=== PATIENT | female | born 1995 | race Caucasian/White ===

== ENCOUNTER 2017-11-27 01:17 | Emergency (ER) | payer OTHER ==
[~2017-11-27] VITALS: Ht 152.4 cm; Wt 46.9 kg
[~2017-11-27 01:17] MED LIST: BCPILLS PO; HYDR1SOL30 PO
[2017-11-27 01:19] VITALS: TEMP 36.5; Ht 152.4 cm; Wt 46.9 kg
[2017-11-27] MEDS ORDERED: IUD'IUD INT UTER (01:47)
[2017-11-27] MEDS ORDERED: ESCI10TA17 PO (01:47)
[2017-11-27 02:00] LABS: BASO % 0.1 %; BASO ABS # 0.01 K/uL (0-0.2); EOS % 0.1 %; EOS ABS # 0.01 K/uL (0-0.5); HEMATOCRIT 41.9 % (37-47); HEMOGLOBIN 15.3 g/dL (12.0-16.0); IG# 0.02 K/uL (0.00-0.02); LYMPH % 25.5 %; LYMPH ABS # 1.75 K/uL (1.2-3.4); MEAN CORPUSCULAR HGB CONC 36.5 g/dl (32-36); MEAN PLATELET VOLUME 9.2 fL (7.4-10.4); MONO % 8.5 %; MONO ABS # 0.58 K/uL (0.11-0.59); NEUT % 65.5 %; NEUT ABS # 4.48 K/uL (1.4-6.5); PLATELET COUNT 282 K/uL (130-400); RED CELL DISTRIBUTION WIDTH CV 12.1 % (11.5-14.5); RED CELL DISTRIBUTION WIDTH SD 37.4 fL (36.4-46.3); WHITE BLOOD COUNT 6.85 K/uL (4.8-10.8)
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
[2017-11-27 02:19] LABS: ALBUMIN 4.9 gm/dl (3.4-5.0); CALCIUM 9.2 mg/dl (8.5-10.1); CREATININE 0.82 mg/dl (0.60-1.20); POTASSIUM 3.9 mmol/L (3.5-5.1)
[2017-11-27 02:29] LABS: TOTAL PROTEIN 8.4 gm/dl (6.4-8.2)
[2017-11-27 11:25] VITALS: BP 123/79; PULSE 74; O2SAT 99
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
== END 2017-11-27 11:27 | disposition home or self-care (01) ==
LOC: C.EDB 01:18 → C.EDA 11:27
DX: R45.851 Suicidal ideations (principal); X78.1XXA Intentional self-harm by knife, initial encounter; F32.9 Major depressive disorder, single episode, unspecified; Z79.899 Other long term (current) drug therapy